=== PATIENT | male | born 1940 | race Two or more races ===

== ENCOUNTER → 2022-06-02 11:19 | Outpatient (CLI) | payer OTHER ==
[~2022-06-02 11:19] MED LIST: DEPO-MEDROL40 MG/ML IM; XYLOCAINE-MP10 MG/ML IM
== END | disposition home or self-care (01) ==
LOC: SONOGRAMA 11:19
PROVIDERS: ATTEND Urology
DX: R31.1 Benign essential microscopic hematuria (principal); N40.1 Benign prostatic hyperplasia with lower urinary tract symptoms; N30.00 Acute cystitis without hematuria